=== PATIENT | male | born 1995 | race Caucasian/White ===

== ENCOUNTER 2017-05-02 12:03 | Emergency (ER) | payer OTHER ==
[~2017-05-02 12:03] MED LIST: ALBU8.5H12 IH; ALPR-429 PO; AMOX-559 PO; AZIT-18 PO; CEFU500T50 PO; CEPH500T7 PO; KET10 PO; LORA-630 PO; MELA10TA2 PO; ONDA4TAB PO; POTA20TA85 PO; PRED20TA6 PO; ROBC PO; SERT25TA90 PO; TRAZ-156 PO
--- NOTE | 2017-05-02 12:15 | ER Report ---
History and Physical Time Seen By MD: 12:14 Hx. of Stated Complaint: Patient reporting chest pain and chest tightness for two days. HPI/ROS CHIEF COMPLAINT: Intermittent chest pain, hoarseness, pain with swallowing HISTORY OF PRESENT ILLNESS: 22-year-old male patient presents to emergency room with complaint of intermittent chest pain, hoarseness and pain with swallowing. Patient states this been going on for the past 10 days. He states that he was seen here and had no improvement in his symptoms. Patient states that his voice is now hoarse. He denies having any fevers, chills, nausea, vomiting or diarrhea. He states that he has not had much to drink because it hurts to swallow. He states he is not currently taking any medication. He states he also noticed that his voice is very hoarse. Patient states that pain seems to be in his upper chest and seems to come and go. REVIEW OF SYSTEMS: Respiratory: Patient does have cough. Cardiovascular: As noted above Gastrointestinal: No vomiting, no abdominal pain. Musculoskeletal: No back pain. Allergies: Coded Allergies: No Known Drug Allergies (Unverified , 04/22/17) Home Meds Active Scripts Prednisone (PREDNISONE) 20 Mg Tablet, 20 MG PO BID, #10 TAB Prov:ALEX FUENTES [facility] 05/02/17 Azithromycin 250 Mg Tab (AZITHROMYCIN 250 MG TAB) 250 Mg Tablet, 1 TAB PO QDAY, #6 TAB Take 2 tabs today and then 1 tab a day until gone. Prov:ALEX FUENTES [facility] 05/02/17 Discontinued Scripts Cephalexin 500 Mg Tab (KEFLEX 500 MG TAB) 500 Mg Tablet, 500 MG PO Q6H, #28 TAB Prov:ALEX FUENTES [facility] 04/22/17 Past Medical/Surgical History Patient has a past medical history of asthma, alcohol use. Patient denies any surgical history. Reviewed Nurses Notes: Yes Hx Smoking: Yes Smoking Status: Current: Every Day Smoker Exposure to Second Hand Smoke?: Yes Hx Substance Use Disorder: No Hx Alcohol Use: Yes (2 X WEEKLY) Constitutional Vital Sign - Last 24 Hours 05/02/17 05/02/17 05/02/17 05/02/17 12:04 12:06 12:08 12:13 Temp 97.2 Pulse 113 86 100 Resp 18 20 25 B/P (MAP) 161/93 (115) 161/93 Pulse Ox 96 94 98 O2 Delivery Room Air 05/02/17 05/02/17 05/02/17 05/02/17 12:18 12:20 12:23 12:28 Pulse 82 82 90 Resp 14 11 8 B/P (MAP) 140/85 (103) Pulse Ox 98 98 98 05/02/17 05/02/17 05/02/17 05/02/17 12:58 13:00 13:03 13:08 Pulse 75 75 70 B/P (MAP) 132/82 (99) Pulse Ox 95 96 96 05/02/17 05/02/17 05/02/17 05/02/17 13:13 13:18 13:20 13:23 Pulse 88 72 71 B/P (MAP) 108/53 (71) Pulse Ox 96 94 96 05/02/17 05/02/17 05/02/17 13:28 13:37 13:38 Pulse 68 73 B/P (MAP) 121/69 (86) Pulse Ox 95 95 Physical Exam General Appearance: The patient is alert, has no immediate need for airway protection and no current signs of toxicity. ENT: Tympanic membranes are pearly-alvarado, auditory canals are patent, mucous membranes are moist. Patient does have swollen tonsils with 4+ tonsillar hypertrophy. Respiratory: Chest is non tender, lungs are clear to auscultation. Cardiac: regular rate and rhythm Gastrointestinal: Abdomen is soft and non tender, no masses, bowel sounds normal. Musculoskeletal: Neck: Neck is supple and non tender. Extremities have full range of motion and are non tender. Skin: No rashes or lesions. DIFFERENTIAL DIAGNOSIS: After history and physical exam differential diagnosis was considered for chest pain including but not limited to myocardial ischemia, pericarditis pulmonary embolus, chest wall pain, pleural inflammation and pulmonary infectious causes. Medical Decision Making Data Points Result Diagram: 05/02/17 1211 05/02/17 1211 Laboratory Hematology Test 05/02/17 12:11 Red Blood Count 5.72 M/uL (4.00-5.60) Mean Corpuscular Volume 94.2 fL (80.0-96.0) Mean Corpuscular Hemoglobin 32.7 pg (26.0-33.0) Mean Corpuscular Hemoglobin Concent 34.7 g/dL (32.0-36.0) Red Cell Distribution Width 12.9 % (11.5-14.5) Mean Platelet Volume 8.0 fL (7.2-11.1) Neutrophils (%) (Auto) 50.9 % (39.4-72.5) Lymphocytes (%) (Auto) 38.4 % (17.6-49.6) Monocytes (%) (Auto) 9.0 % (4.1-12.4) Eosinophils (%) (Auto) 1.0 % (0.4-6.7) Basophils (%) (Auto) 0.7 % (0.3-1.4) Nucleated RBC Relative Count (auto) 0.0 /100WBC Neutrophils # (Auto) 5.2 K/uL (2.0-7.4) Lymphocytes # (Auto) 3.9 K/uL (1.3-3.6) Monocytes # (Auto) 0.9 K/uL (0.3-1.0) Eosinophils # (Auto) 0.1 K/uL (0.0-0.5) Basophils # (Auto) 0.1 K/uL (0.0-0.1) Nucleated RBC Absolute Count (auto) 0.00 K/uL Sodium Level 141 mmol/L (137-145) Potassium Level 3.6 mmol/L (3.5-5.0) Chloride Level 101 mmol/L (98-107) Carbon Dioxide Level 27 mmol/L (22-30) Blood Urea Nitrogen 12 mg/dl (9-21) Creatinine 1.00 mg/dl (0.66-1.25) Glomerular Filtration Rate Calc > 60.0 Random Glucose 91 mg/dl (75-110) Calcium Level 9.2 mg/dl (8.4-10.2) Total Bilirubin 0.6 mg/dl (0.2-1.3) Aspartate Amino Transf (AST/SGOT) 30 U/L (0-35) Alanine Aminotransferase (ALT/SGPT) 36 U/L (0-56) Alkaline Phosphatase 92 U/L (0-126) Troponin I < 0.012 ng/ml Total Protein 7.9 gm/dl (6.3-8.2) Albumin 4.3 g/dl (3.5-5.0) Monoscreen Negative (NEGATIVE) Chemistry Test 05/02/17 12:11 White Blood Count 10.2 k/uL (4.5-11.0) Red Blood Count 5.72 M/uL (4.00-5.60) Hemoglobin 18.7 g/dL (14.0-18.0) Hematocrit 53.9 % (42.0-52.0) Mean Corpuscular Volume 94.2 fL (80.0-96.0) Mean Corpuscular Hemoglobin 32.7 pg (26.0-33.0) Mean Corpuscular Hemoglobin Concent 34.7 g/dL (32.0-36.0) Red Cell Distribution Width 12.9 % (11.5-14.5) Platelet Count 267 K/uL (150-450) Mean Platelet Volume 8.0 fL (7.2-11.1) Neutrophils (%) (Auto) 50.9 % (39.4-72.5) Lymphocytes (%) (Auto) 38.4 % (17.6-49.6) Monocytes (%) (Auto) 9.0 % (4.1-12.4) Eosinophils (%) (Auto) 1.0 % (0.4-6.7) Basophils (%) (Auto) 0.7 % (0.3-1.4) Nucleated RBC Relative Count (auto) 0.0 /100WBC Neutrophils # (Auto) 5.2 K/uL (2.0-7.4) Lymphocytes # (Auto) 3.9 K/uL (1.3-3.6) Monocytes # (Auto) 0.9 K/uL (0.3-1.0) Eosinophils # (Auto) 0.1 K/uL (0.0-0.5) Basophils # (Auto) 0.1 K/uL (0.0-0.1) Nucleated RBC Absolute Count (auto) 0.00 K/uL Glomerular Filtration Rate Calc > 60.0 Calcium Level 9.2 mg/dl (8.4-10.2) Total Bilirubin 0.6 mg/dl (0.2-1.3) Aspartate Amino Transf (AST/SGOT) 30 U/L (0-35) Alanine Aminotransferase (ALT/SGPT) 36 U/L (0-56) Alkaline Phosphatase 92 U/L (0-126) Troponin I < 0.012 ng/ml Total Protein 7.9 gm/dl (6.3-8.2) Albumin 4.3 g/dl (3.5-5.0) Monoscreen Negative (NEGATIVE) EKG/Imaging EKG Interpretation 12 lead EKG: Rhythm: Normal sinus rhythm with sinus arrhythmia [place]: Rightward axis QRS: normal ST segments: normal Imaging HISTORY: Chest pain DATE: 05/02/2017 12:20 PM TECHNIQUE: CHEST PA AND LAT COMPARISON: none FINDINGS: The cardiomediastinal silhouette is of normal size and contour. No pleural effusion. No pneumothorax. No consolidation. The lungs are adequately expanded. IMPRESSION: Normal chest. Report Dictated By: Jarek Pinto MD at 05/02/2017 1:02 PM Report E-Signed By: Jarek Pinto MD at 05/02/2017 1:02 PM EXAMINATION: CT neck with IV contrast HISTORY: Throat swelling and difficulty swallowing. TECHNIQUE: Spiral scan was obtained from the hard palate through the upper chest during injection of nonionic iodinated intravenous contrast. Sagittal and coronal reformatted images are also submitted. One of the following dose optimization techniques was utilized in the performance of this exam: Automated exposure control; adjustment of the mA and/ or kV according to the patient's size; or use of an iterative reconstruction technique. Specific details can be referenced in the facility's radiology CT exam operational policy. CONTRAST: 75 mL of IV Isovue-370 COMPARISON: None. FINDINGS: Masses/lesions: None. Airway: Normal. Vessels: Negative. Musculoskeletal / Body wall: Negative. Lymph node assessment: Negative. Visualized orbits / brain / paranasal sinuses: Rightward nasal septal deviation. Upper chest: Negative. IMPRESSION: 1. Rightward nasal septal deviation. 2. Otherwise normal contrast-enhanced soft tissue neck CT. Report Dictated By: Pranav Dhillon MD at 05/02/2017 1:16 PM Report E-Signed By: Pranav Dhillon MD at 05/02/2017 1:21 PM ED Course/Re-evaluation ED Course Patient was admitted to exam room, history and physical were obtained. Differential diagnoses were considered. On examination patient does have enlarged tonsils, 4+. A CBC, CMP, troponin, EKG, chest x-ray, CT scan of the soft tissue neck were done. The lab results were unremarkable, troponin was negative. EKG showed a normal sinus rhythm with sinus arrhythmia, chest x-ray was negative and CT scan of the neck was negative. I discussed the findings with the patient. I do believe that the patient likely has a viral syndrome. We' ll go ahead and treat that with the steroid however we will also give him antibiotics to help prevent a secondary infection or infection that we are not seeing if this time. I discussed this with patient and he verbalized understanding and agreement. Decision to Disposition Date: May 02, 2017 Decision to Disposition Time: 13:33 Depart Departure Latest Vital Signs Vital Signs Date Time Temp Pulse Resp B/P (MAP) Pulse Ox O2 Delivery O2 Flow Rate FiO2 05/02/17 13:38 73 95 05/02/17 13:37 121/69 (86) 05/02/17 12:28 8 05/02/17 12:06 97.2 Room Air Core Temperature (Celsius): 36.39 Impression: Primary Impression: Pharyngitis Condition: Improved Disposition: HOME OR SELF-CARE Referrals: KELSEA CARDENAS MD (PCP) New Scripts Prednisone (PREDNISONE) 20 Mg Tablet 20 MG PO BID, #10 TAB Prov: ALEX FUENTES 05/02/17 Azithromycin 250 Mg Tab (AZITHROMYCIN 250 MG TAB) 250 Mg Tablet 1 TAB PO QDAY, #6 TAB Take 2 tabs today and then 1 tab a day until gone. Prov: ALEX FUENTES 05/02/17 Patient Instructions: Pharyngitis (ED) Additional Instructions: Increase fluid intake. Get plenty of rest. Increase fluid intake. Take Tylenol or Ibuprofen as needed for pain. Eat as tolerated. Follow up with your primary care provider in the next week. Problem Qualifiers Primary Impression: Pharyngitis Pharyngitis/tonsillitis etiology: unspecified etiology Qualified Codes: J02.9 - Acute pharyngitis, unspecified ALEX FUENTES May 02, 2017 12:15
[2017-05-02] MEDS ORDERED: NS(*) 0.9% 1000 ML BAG 1,000 ML IV ONE (12:20)
[2017-05-02 12:33] LABS: PLATELET COUNT, AUTOMATED 267 K/uL (150-450)
[2017-05-02] MEDS ORDERED: IOPAMIDOL 76% 75 ML INFUS BTL 75 ML ONE (12:35)
[2017-05-02] MEDS ORDERED: NS 0.9% 50 ML VIAL 50 ML ONE (12:35)
--- NOTE | 2017-05-02 13:06 | RADIOLOGY IMAGING REPORT ---
FACILITY: [facility] PATIENT NAME: Rm Koch : 1995 MR: [id number] V: [id number] EXAM DATE: ORDERING PHYSICIAN: ALEX FUENTES TECHNOLOGIST: Location: [facility] - [place] Patient: Rm Koch : 1995 Visit/Account:[id number] Date of Sevice: 05/02/2017 HISTORY: Chest pain DATE: 05/02/2017 12:20 PM TECHNIQUE: CHEST PA AND LAT COMPARISON: none FINDINGS: The cardiomediastinal silhouette is of normal size and contour. No pleural effusion. No pne umothorax. No consolidation. The lungs are adequately expanded. IMPRESSION: Normal chest. Report Dictated By: Jarek Pinto MD at 05/02/2017 1:02 PM Report E-Signed By: Jarek Pinto MD at 05/02/2017 1:02 PM WSN:[id number]
--- NOTE | 2017-05-02 13:25 | RADIOLOGY IMAGING REPORT ---
FACILITY: [facility] PATIENT NAME: Rm Koch : 1995 MR: [id number] V: [id number] EXAM DATE: ORDERING PHYSICIAN: ALEX FUENTES TECHNOLOGIST: Location: [facility] - [place] Patient: Rm Koch : 1995 Visit/Account:[id number] Date of Sevice: 05/02/2017 EXAMINATION: CT neck with IV contrast HISTORY: Throat swelling and difficulty swallowing. TECHNIQUE: Spiral scan was obtained from the hard palate through the upper chest during injection o f nonionic iodinated intravenous contrast. Sagittal and coronal reformatted images are also submitte d. One of the following dose optimization techniques was utilized in the performance of this exam: Autom ated exposure control; adjustment of the mA and/or kV according to the patient's size; or use of an i terative reconstruction technique. Specific details can be referenced in the facility's radiology C T exam operational policy. CONTRAST: 75 mL of IV Isovue-370 COMPARISON: None. FINDINGS: Masses/lesions: None. Airway: Normal. Vessels: Negative. Musculoskeletal / Body wall: Negative. Lymph node assessment: Negative. Visualized orbits / brain / paranasal sinuses: Rightward nasal septal deviation. Upper chest: Negative. IMPRESSION: 1. Rightward nasal septal deviation. 2. Otherwise normal contrast-enhanced soft tissue neck CT. Report Dictated By: Pranav Dhillon MD at 05/02/2017 1:16 PM Report E-Signed By: Pranav Dhillon MD at 05/02/2017 1:21 PM WSN:[id number]
[2017-05-02 13:37] VITALS: BP 121/69
[2017-05-02] MEDS ORDERED: AZIT-18 PO (13:37)
[2017-05-02] MEDS ORDERED: PRED20TA6 PO (13:37)
--- NOTE | 2017-05-02 14:59 | EKG ---
[place] [facility] [place] MAREN HAWKINS : [id number] MR: [id number] V: [id number] EXAM DATE: ORDERING PHYSICIAN: ALEX FUENTES TECHNOLOGIST: LILLIANA Test Reason : CP Blood Pressure : / mmHG Vent. Rate : 083 BPM Atrial Rate : 083 BPM P-R Int : 162 ms QRS Dur : 090 ms QT Int : 350 ms P-R-T Axes : 082 095 045 degrees QTc Int : 411 ms Normal sinus rhythm with sinus arrhythmia Rightward axis Borderline ECG When compared with ECG of 01-OCT-2016 10:21, No significant change was found Confirmed by DMITRIY THOMAS ([id number]) on 05/02/2017 3:05:21 PM Referred By: PANKAJ Confirmed By:DMITRIY THOMAS
== END 2017-05-02 13:50 | disposition home or self-care (01) ==
LOC: ER 12:07
DX: J02.9 Acute pharyngitis, unspecified (principal)
CPT/HCPCS: 70491; 71020; 84484; 85025; 86308; 93005; 99284; J7030; J7050; Q9967; 82040; 82247; 82310; 82374; 82435; 82565; 82947; 84075; 84132; 84155; 84295; 84450; 84460; 84520